=== PATIENT | male | born 1995 | race Caucasian/White ===

== ENCOUNTER 2021-01-17 08:18 | Emergency (ER) | payer MEDICAID ==
[~2021-01-17] VITALS: Ht 177.8 cm; Wt 93.5 kg
[2021-01-17 08:38] VITALS: BP 150/80
[2021-01-17] MEDS ORDERED: AMOX500C25 PO (08:45)
[2021-01-17] MEDS ORDERED: LIDOCAINE 2% 1000 MG/50 ML VIAL INJ ONE (10:08)
[2021-01-17] MEDS ORDERED: cephALEXin 500 MG CAP PO ONE (10:15)
[2021-01-17] MEDS ORDERED: SULFAMETH/TRIMETH DS 800/160MG 1 TAB PO ONE (10:15)
[2021-01-17] MEDS ORDERED: CEPH-588 PO (10:44)
[2021-01-17] MEDS ORDERED: SULF-59 PO (10:45)
[2021-01-17 10:58] VITALS: BP 150/80
== END 2021-01-17 10:57 | disposition home or self-care (01) ==
LOC: MED 08:18
DX: L02.214 Cutaneous abscess of groin (principal); L02.31 Cutaneous abscess of buttock; Z79.899 Other long term (current) drug therapy
CPT/HCPCS: 10061; 99284; J2001; 99283

== ENCOUNTER 2021-01-19 07:54 | Emergency (ER) | payer MEDICAID ==
[~2021-01-19] VITALS: Ht 177.8 cm; Wt 94.8 kg
[~2021-01-19 07:54] MED LIST: AMOX500C25 PO; CEPH-588 PO; SULF-59 PO
--- NOTE | 2021-01-19 08:07 | NUR ---
PT AMBULATED TO BED 7
[2021-01-19 08:13] VITALS: BP 134/90
--- NOTE | 2021-01-19 08:17 | NUR ---
22 Y MALE FROM HOME DUE TO RECHECK OF WOUND ON R UPPER THIGH AND BUTTOCK REGION. PT DENIES ANY PAIN AT THIS TIME AND STATED "IT HAS BEEN MORE ANNOYING." PT WAS SEEN HERE 01/17/21 FOR ABCESS. BOTH WOUNDS COVERED WITH GAUZE AT THIS TIME. PMH: DENIES ALLERGIES: SEA FOOD
--- NOTE | 2021-01-19 08:19 | NUR ---
DR. LEACH BEDSIDE EVALUATING PT
[2021-01-19 08:32] VITALS: BP 134/90
--- NOTE | 2021-01-19 08:33 | NUR ---
Patient discharged with v/s stable. Written and verbal after care instructions given and explained. Patient verbalized understanding. Ambulatory with steady gait. All questions addressed prior to discharge. Advised to follow up with PMD.
== END 2021-01-19 08:32 | disposition home or self-care (01) ==
LOC: MED 07:54
DX: L02.214 Cutaneous abscess of groin (principal); Z79.899 Other long term (current) drug therapy
CPT/HCPCS: 99281